=== PATIENT | male | born 1990 | race Two or more races ===

== ENCOUNTER 2021-05-28 14:18 | Emergency (ER) | payer OTHER ==
[2021-05-28 15:52] LABS: BASOPHILS % (AUTO) 0.4 %; EOSINOPHILS # (AUTO) 0.1 10^3/uL (0.0-0.7); EOSINOPHILS % (AUTO) 0.7 %; HCT - HEMATOCRIT 40.5 % (42.0-52.0); HGB - HEMOGLOBIN 14.3 g/dL (14.0-18.0); LYMPHOCYTES # (AUTO) 1.5 10^3/uL (1.5-3.5); LYMPHOCYTES % (AUTO) 19.4 %; MEAN CORPUSCULAR HEMOGLOBIN 30.6 pg (27.0-31.0); MEAN CORPUSCULAR HGB CONC 35.3 g/dL (32.0-36.0); MEAN CORPUSCULAR VOLUME 86.7 fL (80.0-94.0); MEAN PLATELET VOLUME 9.5 fL (7.4-11.4); MONOCYTES # (AUTO) 0.3 10^3/uL (0.0-1.0); MONOCYTES % (AUTO) 3.7 %; NEUTROPHILS # (AUTO) 5.7 10^3/uL (1.5-6.6); NEUTROPHILS % (AUTO) 75.5 %; PLT - PLATELET COUNT 299 10^3/uL (130-450); RED BLOOD COUNT 4.67 10^6/uL (4.70-6.10); RED CELL DISTRIBUTION WIDTH 12.5 % (12.0-15.0); WHITE BLOOD COUNT 7.5 x10^3/uL (4.8-10.8)
[2021-05-28 16:02] LABS: ALBUMIN 4.7 g/dL (3.2-5.5); ALBUMIN/GLOBULIN RATIO 1.5 (1.0-2.2); BILIRUBIN,TOTAL 0.5 mg/dL (0.2-1.0); CALCIUM 9.9 mg/dL (8.5-10.3); CREATININE 0.8 mg/dL (0.6-1.2); POTASSIUM 3.6 mmol/L (3.5-5.0); TOTAL PROTEIN 7.9 g/dL (6.7-8.2)
--- NOTE | 2021-05-28 17:13 | ED Physician Documentation ---
History of Present Illness - Stated complaint Stated Complaint: DIZZINESS - Chief complaint Chief Complaint: Neuro - History obtained from History obtained from: Patient - Additonal information Additional information: 30-year-old man with 6-month history ofIntermittent dizziness, diagnosed by primary doctor is anxiety, presents with worsening sensation of the room spinning over the past week, intermittent, worse with head turning, usually occurring while at work. Patient states that today he was doing physical work [place] the [employer] [place] and had multiple episodes of dizziness that prompted him to come in. He also has chronic ringing in his ears. When the episodes occur he says he gets stressed out and has chest tightness and SOA that then resolves. PERC negative. Review of Systems Ten Systems: 10 systems reviewed and negative Constitutional: denies: Fever, Chills Eyes: denies: Loss of vision Ears: reports: Tinnitus/ringing Cardiac: reports: Other (chest tightness) Respiratory: reports: Dyspnea. denies: Cough GI: denies: Nausea Neurologic: reports: Other (dizziness). denies: Headache, Head injury, LOC PD PAST MEDICAL HISTORY - Past Medical History Past Medical History: No Cardiovascular: None Respiratory: None Neuro: None Endocrine/Autoimmune: None GI: None : None HEENT: None Psych: None Musculoskeletal: None Derm: None - Past Surgical History Past Surgical History: No - Present Medications Home Medications: Ambulatory Orders Medication Instructions Recorded Confirmed Meclizine [Antivert] 25 mg PO Q6H PRN #30 tablet 05/28/21 - Allergies Allergies/Adverse Reactions: Allergies Allergy/AdvReac Type Severity Reaction Status Date / Time No Known Drug Allergies Allergy Verified 05/28/21 14:36 - Social History Does the pt smoke?: No Smoking Status: Never smoker Does the pt drink ETOH?: No Does the pt have substance abuse?: No - Immunizations Immunizations are current?: Yes - POLST Patient has POLST: No PD ED PE NORMAL - Vitals Vital signs reviewed: Yes - General General: Alert and oriented X 3, No acute distress, Well developed/nourished - HEENT HEENT: Atraumatic, PERRL, EOMI, Moist mucous membranes - Neck Neck: Supple, no meningeal sign - Cardiac Cardiac: RRR - Respiratory Respiratory: No respiratory distress, Clear bilaterally - Abdomen Abdomen: Non tender, Non distended - Derm Derm: Normal color, Warm and dry - Extremities Extremities: No deformity - Neuro Neuro: Alert and oriented X 3 - Psych Psych: Normal mood, Normal affect Results - Vitals Vitals: Vital Signs - 24 hr 05/28/21 05/28/21 05/28/21 14:36 16:20 17:26 Temperature 36.7 C Heart Rate 74 80 Heart Rate [ 65 Sitting] Heart Rate [ 66 Standing] Heart Rate [ 64 Supine] Respiratory 19 18 Rate Blood Pressure 150/102 H 140/80 H Blood Pressure 137/90 H [Sitting] Blood Pressure 141/96 H [Standing] Blood Pressure 138/80 H [Supine] O2 Saturation 100 100 Oxygen O2 Source Room air - Labs Labs: Laboratory Tests 05/28/21 05/28/21 05/28/21 15:46 15:46 16:25 WBC 7.5 RBC 4.67 L Hgb 14.3 Hct 40.5 L MCV 86.7 MCH 30.6 MCHC 35.3 RDW 12.5 Plt Count 299 MPV 9.5 Neut # (Auto) 5.7 Lymph # (Auto) 1.5 Sutter # (Auto) 0.3 Eos # (Auto) 0.1 Baso # (Auto) 0.0 Absolute Nucleated RBC 0.00 Nucleated RBC % 0.0 Sodium 139 Potassium 3.6 Chloride 104 Carbon Dioxide 27 Anion Gap 8.0 BUN 14 Creatinine 0.8 Estimated GFR (MDRD) 115 Glucose 98 POC Whole Bld Glucose 92 Calcium 9.9 Total Bilirubin 0.5 AST 22 ALT 25 Alkaline Phosphatase 60 Total Protein 7.9 Albumin 4.7 Globulin 3.2 Albumin/Globulin Ratio 1.5 Lipase 22 PD MEDICAL DECISION MAKING - ED course ED course: 30-year-old man presented with dizziness ongoing for the past several months, worsening and occurring again today. His EKG is normal as is his orthostatic testing and lab work. I discussed with the patient that given the ringing in his ears he may have peripheral vertigo and he agreed to trial meclizine on an outpatient basis. Advised the patient to follow-up with his primary doctor for referral to ENT. Return precautions were given. Departure - Departure Disposition: 01 Home, Self Care Clinical Impression: Dizziness Condition: Good Instructions: ED Dizziness [facility] Follow-Up: STEPHANIE KRISHNAMURTHY MD [Physician No Access] - Prescriptions: Meclizine [Antivert] 25 mg PO Q6H PRN #30 tablet PRN Reason: Dizziness Comments: You are seen in the emergency department for dizziness that may be caused by vertigo. Try taking the medication that I prescribed for relief of symptoms. [place] scler[place]. Return to the emergency department if you have any new or worsening symptoms or other concerns. Forms: Activity restrictions Discharge Date/Time: 05/28/21 17:26
[2021-05-28 17:27] VITALS: BP 140/80
== END 2021-05-28 17:26 | disposition home or self-care (01) ==
LOC: ED 14:18
DX: R42 Dizziness and giddiness (principal)
CPT/HCPCS: 36415; 80053; 83690; 85025; 93005; 99283